=== PATIENT | female | born 1995 | race Hispanic/Latino ===

== ENCOUNTER 2017-12-14 13:50 | Outpatient (CLI) | payer MEDICAID, BC ==
--- NOTE | 2017-12-14 16:59 | ULT ---
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 Patient is feeling new masses in the left breast. COMPARISON: 05/06/15. TECHNIQUE: Targeted sonographic images of the left breast is performed at the 11 o'clock, 12 o'clock and 7 o'renaldo ck position. Static images were reviewed. After reading static images, real time imaging is performed in the presence of the radiologist. FINDINGS: Static and real time images demonstrate a well circumscribed solid mass at the 11 o'clock position co rresponding to the palpable finding measuring 2.1 x 2.4 x 1.6 cm. There is an adjacent similar echote xture mass measuring 1.3 cm. There are two additional lesions noted in the left breast near the 7 o'c lock position which have a similar echotexture. IMPRESSION: At least four discrete solid masses in the left breast. Imaging features favor multifocal fibroadenom as. The lesion at the 7 o'clock position has been biopsied in the past and has a pathologic diagnosis of fibroadenoma. POS: [id number]
== END 2017-12-14 13:51 | disposition home or self-care (01) ==
LOC: BICULT 13:50
PROVIDERS: ATTEND Nurse Practitioner Women's Health
DX: N63.20 Unspecified lump in the left breast, unspecified quadrant (principal)